=== PATIENT | female | born 1960 | race Two or more races ===

== ENCOUNTER 2017-08-28 11:01 | Outpatient (CLI) | payer OTHER ==
[~2017-08-28 11:01] MED LIST: DIOVAN40 MG PO
== END 2017-08-28 11:09 | disposition home or self-care (01) ==
LOC: RAD 501 11:01
DX: M54.5 Low back pain (principal)

== ENCOUNTER 2024-06-08 11:24 | Outpatient (CLI) | payer OTHER | END 2024-06-08 11:33 | disposition home or self-care (01) | LOC: MAMO-SONO 11:24 | PROVIDERS: ATTEND Obstetrics & Gynecology | DX: N63.0 Unspecified lump in unspecified breast (principal); N64.4 Mastodynia; Z12.31 Encounter for screening mammogram for malignant neoplasm of breast ==

== ENCOUNTER 2024-07-24 12:32 | Outpatient (CLI) | payer OTHER | END 2024-07-24 12:33 | disposition home or self-care (01) | LOC: NUCLEAR 12:32 | PROVIDERS: ATTEND Obstetrics & Gynecology | DX: M81.0 Age-related osteoporosis without current pathological fracture (principal) ==